=== PATIENT | female | born 1945 | race Two or more races ===

== ENCOUNTER → 2019-03-04 | Outpatient (CLI) | payer MEDICAID, OTHER, SELFPAY ==
--- NOTE | 2019-03-04 12:05 | CARD ---
MR#: [id number] Date of Study: 03/04/2019 Ordering Physician: MIKE GRACIA, Referring Physician: MIKE GRACIA Tech: Alysia Dmaon RDCS APPROVED REPORT EXAM: Two-dimensional and M-mode echocardiogram with Doppler and color Doppler. Other Information Quality : AverageHR: 62bpm Rhythm : NSR INDICATION Shortness of breath 2D DIMENSIONS RVDd2.5 (2.9-3.5cm)Left Atrium(2D)3.3 (1.6-4.0cm) IVSd0.7 (0.7-1.1cm)Aortic Root(2D)2.9 (2.0-3.7cm) LVDd5.1 (3.9-5.9cm)LVOT Diameter1.9 (1.8-2.4cm) PWd0.8 (0.7-1.1cm)LVDs2.8 (2.5-4.0cm) FS (%) 45.4 %SV93.3 ml LVEF(%)70.0 (>50%) M-Mode DIMENSIONS Left Atrium(MM)3.72 (2.5-4.0cm)Aortic Root3.31 (2.2-3.7cm) Aortic Valve AoV Peak Caleb.123.1cm/sAoV VTI31.0cm AO Peak GR.6.1mmHgLVOT Peak Caleb.103.4cm/s AO Mean GR.3mmHgAVA (VMAX)2.37cm2 IVORY (VTI)2.40cm2 Mitral Valve MV E Kqcqqnuq48.5cm/sMV DECEL [id number] MV A Xkfqfjxn10.2cm/sE/A Ratio1.5 Pulmonary Valve PV Peak Glvfcdme42.9cm/s Tricuspid Valve TR P. Wuoplfoa621fi/sRAP [id number] TR Peak Gr.55gyUgCYJF80daRr LEFT VENTRICLE The left ventricle is normal size. There is normal left ventricular wall thickness. The left ventricu lar systolic function is normal. The Ejection Fraction is 65-70%. There is normal LV segmental wall m otion. Transmitral Doppler flow pattern is Grade II-pseudonormal filling dynamics. RIGHT VENTRICLE The right ventricle is normal size. There is normal right ventricular wall thickness. The right ventr icular systolic function is normal. ATRIA The left atrium size is normal. The right atrium size is normal. The interatrial septum is intact wit h no evidence for an atrial septal defect or patent foramen ovale as noted on 2-D or Doppler imaging. AORTIC VALVE The aortic valve is normal in structure and function. The aortic valve is trileaflet. Doppler and Col or Flow revealed no significant aortic regurgitation. There is no significant aortic valvular stenosi s. MITRAL VALVE The mitral valve is normal in structure and function. There is no evidence of mitral valve prolapse. There is no mitral valve stenosis. Doppler and Color-flow revealed trace mitral regurgitation. TRICUSPID VALVE The tricuspid valve is normal in structure and function. Doppler and Color Flow revealed mild tricusp id regurgitation. There is mild pulmonary hypertension. The PA pressure was estimated at 33 mmHg. The re is no tricuspid valve prolapse or vegetation. There is no tricuspid valve stenosis. PULMONIC VALVE The pulmonic valve is not well visualized. GREAT VESSELS The aortic root is normal in size. The ascending aorta is normal in size. The IVC is normal in size a nd collapses >50% with inspiration. PERICARDIAL EFFUSION There is no evidence of significant pericardial effusion. Critical Notification Critical Value: No <Conclusion> The left ventricular systolic function is normal. The Ejection Fraction is 65-70%. There is normal LV segmental wall motion. Transmitral Doppler flow pattern is Grade II-pseudonormal filling dynamics. Trace mitral regurgitation. Mild tricuspid regurgitation. The PA pressure was estimated at 33 mmHg. There is no evidence of significant pericardial effusion. Signed by : Mike Gracia, Electronically Approved : 03/04/2019 12:05:10
== END | disposition home or self-care (01) ==
LOC: ECHO 10:43
PROVIDERS: ATTEND Internal Medicine Cardiovascular Disease
DX: I07.1 Rheumatic tricuspid insufficiency (principal); I27.20 Pulmonary hypertension, unspecified
CPT/HCPCS: 93306

== ENCOUNTER → 2019-03-04 | Outpatient (CLI) | payer OTHER ==
--- NOTE | 2019-03-04 16:12 | RAD ---
MR#: [id number] Date of Study: 03/04/2019 Ordering Physician: MIKE SANCHEZ, Referring Physician: MIKE SANCHEZ, Tech: Thania Oscar RDMS, RVT, RTR APPROVED REPORT Patient Location : OUT-PATIENT Indications Lower Extremity Edema : Bilateral Limited grayscale images of the bilateral lower extremity superficial veins do not reveal any obvious evidence of thrombus. The greater saphenous vein at the level of the groin measures approximately 3.9 mm on the left and 4. 1 mm on the right. Maximum reflux time is 1.7 seconds bilaterally. This is mostly at the level of the saphenofemoral junction without any obvious evidence of reflux throughout the rest of the lower extr emity. This may be reflective of no obvious valvular insufficiency in the greater saphenous vein and more likely side branch disease at the level of the groin. The bilateral lesser saphenous veins do not show any evidence of reflux. Greater Saphenous Veins (GSV) Significant venous relux noted in the RIGHT GSV at the following levels : Superficial Femoral Junctio n Significant venous relux noted in the LEFT GSV at the following levels : Superficial Femoral Junction Critical Notification Critical Value: No <Conclusion> 1. Mild reflux mostly localized to the bilateral saphenofemoral junctions without any significant ref lux in the greater and lesser saphenous veins Signed by : Osiel Francisco, Electronically Approved : 03/04/2019 16:11:35
== END | disposition home or self-care (01) ==
LOC: KCIC US 12:47 → EDUNIT# 13:30
PROVIDERS: ATTEND Internal Medicine Cardiovascular Disease
DX: I87.2 Venous insufficiency (chronic) (peripheral) (principal)
CPT/HCPCS: 93970